=== PATIENT | female | born 1975 | race Caucasian/White ===

== ENCOUNTER 2016-12-04 18:26 | Emergency (ER) | payer OTHER ==
[~2016-12-04] VITALS: Ht 157.5 cm; Wt 72.6 kg
[2016-12-04] MEDS ORDERED: FLEXERIL PO (19:32)
[2016-12-04] MEDS ORDERED: MOBIC15 MG PO (19:32)
[2016-12-04 19:51] VITALS: BP 110/69
== END 2016-12-04 19:51 | disposition home or self-care (01) ==
LOC: ER 18:26
DX: S39.012A Strain of muscle, fascia and tendon of lower back, initial encounter (principal); S80.02XA Contusion of left knee, initial encounter; Z88.2 Allergy status to sulfonamides; F10.99 Alcohol use, unspecified with unspecified alcohol-induced disorder; W17.89XA Other fall from one level to another, initial encounter; Y93.9 Activity, unspecified; Y92.9 Unspecified place or not applicable; Y99.9 Unspecified external cause status

== ENCOUNTER 2016-12-06 13:41 | Emergency (ER) | payer OTHER ==
[~2016-12-06] VITALS: Ht 157.5 cm; Wt 70.3 kg
[~2016-12-06 13:41] MED LIST: FLEXERIL PO; MOBIC15 MG PO
[2016-12-06] MEDS ORDERED: NASACORT10.8 ML NS (13:46)
[2016-12-06] MEDS ORDERED: ADVIL200 M1 PO (13:47)
[2016-12-06] MEDS ORDERED: HYDROCODONE-AP1 EAC6 PO (15:02)
[2016-12-06 15:18] VITALS: BP 117/66
== END 2016-12-06 15:30 | disposition home or self-care (01) ==
LOC: ER 13:41
DX: S30.0XXA Contusion of lower back and pelvis, initial encounter (principal); F10.99 Alcohol use, unspecified with unspecified alcohol-induced disorder; Z90.711 Acquired absence of uterus with remaining cervical stump; Z88.2 Allergy status to sulfonamides; W17.89XA Other fall from one level to another, initial encounter; Y93.9 Activity, unspecified; Y92.511 Restaurant or cafe as the place of occurrence of the external cause; Y99.9 Unspecified external cause status